=== PATIENT | male | born 1995 | race Caucasian/White ===

== ENCOUNTER 2017-12-13 05:20 | Inpatient (IN) | payer OTHER ==
[~2017-12-13] VITALS: Ht 185.4 cm; Wt 107.0 kg
[2017-12-13 05:32] VITALS: BP 122/61; PULSE 99; RESP 18; TEMP 99.9; O2SAT 96
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
[2017-12-13] MEDS ORDERED: ENALAPRILAT 1.25 MG/ML VIAL IV PUSH PRN (06:30)
[2017-12-13] MEDS ORDERED: ACETAMINOPHEN 325 MG TAB PO PRN (06:30)
[2017-12-13] MEDS ORDERED: MORPHINE SULFATE 4 MG/ML INJ IV PUSH PRN (06:30)
[2017-12-13] MEDS ORDERED: SODIUM CHLORIDE 0.9% FLUSH 10 ML FLUSH IV FLUSH PRN (06:30)
[2017-12-13] MEDS ORDERED: METHOCARBAMOL 500 MG TAB PO SCH (06:30)
[2017-12-13] MEDS ORDERED: ACETAMINOPHEN 1000 MG/100 ML 100 ML IV SCH (06:30)
[2017-12-13] MEDS ORDERED: ONDANSETRON ODT 4 MG TAB PO PRN (06:30)
[2017-12-13 07:08] VITALS: BP 125/64; PULSE 92; RESP 17; O2SAT 97
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
[2017-12-13] MEDS ORDERED: METH500T3 PO (08:50)
[2017-12-13] MEDS ORDERED: PERC5TAB12 PO (08:50)
[2017-12-13] MEDS ORDERED: DOCUSATE SODIUM 50 MG/SENNA 8.6 MG TAB PO SCH (09:00)
[2017-12-13] MEDS ORDERED: REMOVE OLD LIDOCAINE PATCH T-DERMAL SCH (09:00)
[2017-12-13] MEDS ORDERED: LIDOCAINE HCL 5% PATCH T-DERMAL SCH (09:00)
[2017-12-13] MEDS ORDERED: BACITRACIN TOP OINT 15 GM TUBE TOP SCH (09:00)
[2017-12-13 11:54] VITALS: BP 144/70; PULSE 85; RESP 17; O2SAT 97
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
== END 2017-12-13 11:54 | disposition home or self-care (01) | DRG 89 ==
LOC: NEPC 05:20 → NEDA 05:54
PROVIDERS: ADMIT Surgery; ATTEND Surgery
DX: S06.0X1A Concussion with loss of consciousness of 30 minutes or less, initial encounter (principal); S27.321A Contusion of lung, unilateral, initial encounter; S42.022A Displaced fracture of shaft of left clavicle, initial encounter for closed fracture; S22.32XA Fracture of one rib, left side, initial encounter for closed fracture; S01.312A Laceration without foreign body of left ear, initial encounter; V49.50XA Passenger injured in collision with unspecified motor vehicles in traffic accident, initial encounter
CPT/HCPCS: 71045